=== PATIENT | female | born 1985 | race African-American/Black ===

== ENCOUNTER 2022-05-31 18:16 | Emergency (ER) | payer BC, OTHER ==
[2022-05-31 18:21] VITALS: BP 112/74; PULSE 86; RESP 18; TEMP 97
[2022-05-31] MEDS ORDERED: LIDOCAINE 1%/EPI 1:100000 (20 ML MULTI DOSE VIAL) ONE (18:40)
[2022-05-31] MEDS ORDERED: DIPHTH,PERTUSS(ACELL),TET 0.5 ML DISP.SYRIN IM ONE ×2 (18:42→19:23)
== END 2022-05-31 19:45 | disposition home or self-care (01) ==
LOC: JERFT 18:16
PROC: 0HQGXZZ Repair Left Hand Skin, External Approach (ICD-10-PCS; principal; 2022-05-31)
PROC: 3E0234Z Introduction of Serum, Toxoid and Vaccine into Muscle, Percutaneous Approach (ICD-10-PCS; 2022-05-31)
DX: S61.412A Laceration without foreign body of left hand, initial encounter (principal); W27.2XXA Contact with scissors, initial encounter
CPT/HCPCS: 99284-25

== ENCOUNTER 2022-11-09 21:43 | Emergency (ER) | payer BC ==
[2022-11-09 21:54] VITALS: BP 120/73; PULSE 73; RESP 18; TEMP 98.2; BMI 27.4
== END 2022-11-10 01:24 | disposition home or self-care (01) ==
LOC: JER 21:43 → JERFT 21:43 → JER 11-10 01:24
DX: M79.662 Pain in left lower leg (principal); W10.9XXA Fall (on) (from) unspecified stairs and steps, initial encounter
CPT/HCPCS: 73590-TC-LT-FY; 84703; 99284-25